=== PATIENT | female | born 1945 | race Caucasian/White ===

== ENCOUNTER 2018-08-18 10:42 | Day surgery (SDC) | payer OTHER ==
[2018-08-18] MEDS ORDERED: ONDANSETRON 4 MG INJ (11:18)
[2018-08-18] MEDS: ONDANSETRON 4 MG INJ IV (11:21)
[2018-08-18] MEDS ORDERED: HEPARIN 1000 UNITS/ML 10 ML INJ (13:37)
[2018-08-18] MEDS ORDERED: LIDOCAINE 1% (MDV) 20 ML INJ (13:37)
[2018-08-18] MEDS ORDERED: IODIXANOL LOCM 100 ML BTL (13:37)
[2018-08-18] MEDS ORDERED: MIDAZOLAM 1 MG/ML 2 ML INJ (13:38)
[2018-08-18] MEDS ORDERED: VERAPAMIL 5 MG INJ (13:39)
[2018-08-18] MEDS ORDERED: NITROGLYCERIN (IC) 100 MCG/ML INJ (13:39)
[2018-08-18] MEDS ORDERED: FENTAnyl 50 MCG/ML VIAL (13:39)
[2018-08-18] MEDS ORDERED: BIVALIRUDIN 250MG /NS 50 ML 50 ML IVPB (14:06)
[2018-08-18] MEDS: ACETAMINOPHEN 325 MG TAB PO (15:59)
== END 2018-08-18 18:51 | disposition other institution (70) ==
LOC: CCL 10:42 → SDS 10:42 → CCL 18:51
DX: I21.4 Non-ST elevation (NSTEMI) myocardial infarction (principal); I25.110 Atherosclerotic heart disease of native coronary artery with unstable angina pectoris; I11.0 Hypertensive heart disease with heart failure; I50.33 Acute on chronic diastolic (congestive) heart failure; J44.9 Chronic obstructive pulmonary disease, unspecified
CPT/HCPCS: 93458; 93571